=== PATIENT | male | born 1965 | race Caucasian/White ===

== ENCOUNTER → 2016-07-30 | Day surgery (SDC) | payer OTHER ==
[~2016-07-30] MED LIST: AMBIEN PO; BENADRYL25 MG PO; DIAZEPAM; GABAPENTIN300 MG PO; IBUPROFEN; INDERAL LA PO; KETEK400 MG; MINIPRESS PO; PREDNISONE50 MG PO; TRAZODONE PO; ZANAFLEX PO; ZOLOFT PO
--- NOTE | ~2016-07-30 | OR ---
Unit #: [id number] #: [id number] Patient: INDRA PRINCE [id number] [address] [address] [id number] O MR#: [id number] NAME: INDRA PRINCE ROOM: Date of Procedure: 07/30/2016 Admission Date: 07/30/2016 Surgeon: Jared Crockett M.D. : 1965 Attending Physician: Jared Crockett M.D. Primary Care Physician: Reilly Liu M.D. OPERATIVE REPORT PREOPERATIVE DIAGNOSIS Screening colonoscopy. POSTOPERATIVE DIAGNOSIS Screening colonoscopy. PROCEDURE PERFORMED Colonoscopy to cecum. ANESTHESIA Monitored anesthesia care. FINDINGS The patient had normal colonoscopy except for mild internal hemorrhoids. SPECIMENS None. COMPLICATIONS None apparent. CONDITION The patient tolerated the procedure well. INDICATIONS FOR PROCEDURE The patient is a 50-year-old [place] male. He presents at this time for screening colonoscopy. DESCRIPTION OF PROCEDURE After obtaining informed consent through his [employer] translator interpreter named Irineo, the patient was brought to the endoscopy suite and after adequate monitored anesthesia care, had the colonoscope placed through the anus and slowly advanced to the level of the cecum without difficulty with lumen always in view. The cecum was normal as was the ileocecal valve. The ascending colon was normal as was the hepatic flexure, transverse colon, splenic flexure, descending colon, sigmoid colon, and rectum. No diverticula were seen. On retroflexing the rectum to the anorectal junction, the patient was found to have some mild internal hemorrhoids. On pulling back through the anal canal, there was no abnormality seen other than a small resolving thrombosed external hemorrhoid. On digital examination, there was good sphincter tone. No masses palpable other than Unit #: [id number] #: [id number] Patient: INDRA PRINCE the small resolving external thrombosed hemorrhoid. The patient tolerated the procedure well and went from the endoscopy suite to the recovery area in stable condition. RECOMMENDATIONS High-fiber diet, lots of liquids, tucks or wipes p.r.n. Follow up as needed. Dictated by... Geno Gastelum/erick TD: 07/30/2016 11:43 JOB #: [id number] CC: [facility] OPERATIVE REPORT X Jared Crockett MD PROCEDURE OPERATIVE NOTE
== END | disposition home or self-care (01) ==
LOC: COPS 05:38
PROVIDERS: Surgery
PROC: 0DJD8ZZ Inspection of Lower Intestinal Tract, Via Natural or Artificial Opening Endoscopic (ICD-10-PCS; principal; 2016-07-30 07:00)
DX: Z12.11 Encounter for screening for malignant neoplasm of colon (principal); K64.8 Other hemorrhoids; K21.9 Gastro-esophageal reflux disease without esophagitis; M54.9 Dorsalgia, unspecified; F32.9 Major depressive disorder, single episode, unspecified; F41.9 Anxiety disorder, unspecified; I10 Essential (primary) hypertension; Z79.899 Other long term (current) drug therapy; Z79.1 Long term (current) use of non-steroidal anti-inflammatories (NSAID); M25.50 Pain in unspecified joint; F17.200 Nicotine dependence, unspecified, uncomplicated
CPT/HCPCS: J2250

== ENCOUNTER → 2016-08-29 | Outpatient (CLI) | payer OTHER ==
--- NOTE | ~2016-08-29 | CR63 ---
[facility] A Service of [facility] & [facility] RADIOLOGY TEXT RESULTS PATIENT: INDRA PRINCE [place] [facility] [place] [birth year] UNIT #: [id number] AGE: [address]: Yo Jerez MD SEX: M ORDER DR: [id number] [facility] [address] [place], [place] [address] [id number] O MR#: [id number] Acc #: [id number] NAME: INDRA PRINCE : 1965 SEX: M STUDY DATE/TIME: 08/29/2016 12:02 [place]IT: [facility] [place] ROOM: STUDY DESCRIPTION: CR Chest 2 View Attending Physician: Yo Jerez M.D. Referring Physician: Yo Jerez M.D. Ordering Physician: Yo Jerez M.D. Primary Care Physician: Reilly Liu M.D. MEDICAL IMAGING REPORT This report is preliminary unless electronic signature is present EXAM Chest x-ray 08/29/2016 INDICATION Preop exam for lumbar spine surgery. History of hypertension and smoking. FINDINGS PA and lateral examination of the chest upright shows a good expansion of the parenchyma with a normal distribution of the pulmonary vascularity. There is no indication of congestion, effusion, infiltrate, tumor, or nodular density. The pleural reflections and diaphragmatic contours are normal. The cardiac silhouette and mediastinal anatomy is within normal limits. IMPRESSION Normal chest. Dictated by... Aaron Cornejo Jr., M.D. THIS IS AN ELECTRONICALLY VERIFIED REPORT Aaron Cornejo Jr., M.D. at 08/29/2016 2:49 PM NOELLE/nikita TD: 08/29/2016 14:13 JOB #: [id number] MEDICAL IMAGING REPORT Page 1 of 1 COPY
--- NOTE | ~2016-08-29 | EKG ---
PATIENT: INDRA PRINCE UNIT #: [id number] Ventricular Rate: 61 BPM Atrial Rate: 61 BPM P-R Interval: 188 ms QRS Duration: 78 ms Q-T Interval: 410 ms QTC Calculation(Bezet): 412 ms P Slemp: 41 degrees Calculated R Slemp: 9 degrees Calculated T Slemp: 5 degrees Diagnosis Line: Normal sinus rhythm Diagnosis Line: Normal ECG Diagnosis Line: No previous ECGs available Diagnosis Line: Confirmed by KURTIS STEPHEN MD ([id number]) on 08/30/2016 Diagnosis Line: 4:27:17 PM INTERPRETING MD: HAILEE CELESTE
[2016-08-29 11:50] LABS: HEMATOCRIT 46.7 % (38.0-50.0); HEMOGLOBIN 15.3 gm/dL (13.0-16.0); MEAN CELL VOLUME 96.2 FL (83-96); MEAN CORPUSCULAR HEMOGLOBIN 31.6 PG (28-34); MEAN CORPUSCULAR HGB CONC 32.8 g/dL (30-36); MEAN PLATELET VOLUME 8.5 FL (6.5-11.5); RED BLOOD COUNT 4.85 X10e (3.90-5.60); RED CELL DISTRIBUTION WIDTH 13.9 % (11.0-15.5); WHITE BLOOD COUNT 8.5 X10e3 (4.0-10.5)
[2016-08-29 11:55] LABS: URINE APPEARANCE CLEAR; URINE BILIRUBIN NEG (NEG); URINE BLOOD NEG (NEG); URINE COLOR YELLOW; URINE GLUCOSE NEG (NEG); URINE KETONE NEG (NEG); URINE LEUKOCYTE ESTERASE NEG (NEG); URINE NITRATE NEG (NEG); URINE PROTEIN NEG (NEG); URINE SPECIFIC GRAVITY 1.027 (1.003-1.035); URINE UROBILINOGEN 0.2 MG/DL (NEG)
[2016-08-29 12:08] LABS: URINE SOURCE CLEAN CATCH
[2016-08-29 12:11] LABS: PROTHROMBIN TIME (PATIENT) 10.7 SECONDS (9.6-11.5)
[2016-08-29 12:19] LABS: CALCIUM SERUM 8.8 mg/dL (8.4-10.2); CREATININE SERUM 0.9 mg/dL (0.6-1.4); GLOM FILT RATE Estimated 99.2 mL/min (>60); POTASSIUM 4.1 mmol/L (3.5-5.1)
== END | disposition home or self-care (01) ==
LOC: CEKG 10:59
PROVIDERS: Orthopaedic Surgery Orthopaedic Surgery of the Spine
DX: Z01.818 Encounter for other preprocedural examination (principal); M54.16 Radiculopathy, lumbar region
CPT/HCPCS: 36415; 71020; 80048; 81003; 85027; 85610; 85730; 93005